=== PATIENT | female | born 1955 | race Caucasian/White ===

== ENCOUNTER 2017-01-01 19:31 | Inpatient (IN) | payer OTHER ==
[2017-01-02 04:06] LABS: HGB 10.9 g/dl (12.5-16.0); MCH 29.6 pg (25.0-31.0); MCHC 32.1 g/dL (32.0-36.0); MCV 92.4 fL (78.0-100.0); MPV 10.7 fL (6.0-9.5); RBC 3.68 M/uL (4.20-5.40); WBC 7.7 K/uL (4.0-10.5)
[2017-01-02 04:26] LABS: CREATININE 0.6 mg/dL (0.5-1.0)
[2017-01-03 05:19] LABS: HCT 38.8 % (37.0-47.0); HGB 12.7 g/dl (12.5-16.0); MCH 29.4 pg (25.0-31.0); MCHC 32.7 g/dL (32.0-36.0); MCV 89.8 fL (78.0-100.0); MPV 10.4 fL (6.0-9.5); RBC 4.32 M/uL (4.20-5.40); RDW 13.1 % (11.5-14.0); WBC 8.6 K/uL (4.0-10.5)
[2017-01-03 10:36] LABS: ALBUMIN 2.6 g/dL (3.4-4.8); BILIRUBIN - TOTAL 0.5 mg/dL (0.1-1.0); CREATININE 0.7 mg/dL (0.5-1.0); GLOBULIN (CALCULATION) 1.6 g/dL (2.2-4.2); MAGNESIUM 1.45 mg/dL (1.40-2.10); PHOSPHORUS 2.6 mg/dL (2.7-4.5); POTASSIUM 3.4 mmol/L (3.5-5.1); TOTAL PROTEIN 4.2 g/dL (6.4-8.3)
[2017-01-03 16:17] LABS: BILIRUBIN 2+ mg/dL (NEGATIVE); BLOOD TRACE-INTACT Ery/uL (NEGATIVE); CLARITY CLEAR (CLEAR); COLOR AMBER (YELLOW); GLUCOSE (U) NORMAL (NORMAL); KETONE (U) 2+ (MODERATE) mg/dL (NEGATIVE); LEUKOCYTES NEGATIVE Leu/uL (NEGATIVE); NITRITE NEGATIVE (NEGATIVE); PROTEIN 1+ mg/dL (NEGATIVE)
[2017-01-03 16:26] LABS: BACTERIA TRACE
--- NOTE | 2017-01-03 22:00 | NUR ---
DR FERRER INFORMED PT AND FAMILY OF CT RESULTS AND THE POSSIBILITY OF SURGERY AT THIS TIME CONSENT FOR CENTRAL LINE PLACEMENT SIGNED PER DTR [id number]-DR FERRER INFORMED PT THAT SHE WILL BE GOING DOWN TO SURGERY R/T ABCESS OF LEFT FLANK,CONSENT SIGNED BY DTR, 7898-PT LEFT FLOOOR PER STRETCHER AND 2 SURGICAL PERSONAL,IN STABLE CONDITION REPORT GIVEN
--- NOTE | 2017-01-04 02:35 | NUR ---
PT ARRIVED FROM OR AT 0120. L WRIST ARTERIAL LINE IN PLACE. WOUND VAC TO LLQ WITH BROWN DRAINAGE, EMPTIED 450ML. F/C STILL IN PLACE WITH DARK BROWNISH/GREEN URINE. HR CURRTENTLY 122, 99.1 TEMP, 84/50 ABP, 96% ON 2L, LABS DRAWN, 1ST LR BOLUS GOING. IN OR THEY WASHED OUT HER ABDOMEN WITH 3-4L OF NS PER BENCH MECHANIC AND GOT OUT BLOODY/BROWN DRAINAGE AND PLACED WOUND VAC AND LSC TRIPLE LUMEN. DIAGNOSING WITH NECROTIZING FASCIITIS.
[2017-01-04 02:48] LABS: HCT 31.7 % (37.0-47.0); HGB 10.3 g/dl (12.5-16.0); MCH 29.2 pg (25.0-31.0); MCHC 32.5 g/dL (32.0-36.0); MCV 89.8 fL (78.0-100.0); MPV 10.3 fL (6.0-9.5); RBC 3.53 M/uL (4.20-5.40); WBC 8.1 K/uL (4.0-10.5)
[2017-01-04 03:10] LABS: ALBUMIN 1.9 g/dL (3.4-4.8); BILIRUBIN - TOTAL 0.5 mg/dL (0.1-1.0); CREATININE 0.8 mg/dL (0.5-1.0); GLOBULIN (CALCULATION) 1.4 g/dL (2.2-4.2); POTASSIUM 3.3 mmol/L (3.5-5.1); TOTAL PROTEIN 3.3 g/dL (6.4-8.3)
[2017-01-04 03:11] LABS: MAGNESIUM 1.59 mg/dL (1.40-2.10); PHOSPHORUS 2.3 mg/dL (2.7-4.5)
== END 2017-01-04 03:00 | disposition other institution (70) | DRG 853 ==
LOC: FTCU 19:31 → FICU 01-04 00:56
PROVIDERS: Internal Medicine Nephrology; ADMIT Surgery
PROC: 0DTJ4ZZ Resection of Appendix, Percutaneous Endoscopic Approach (ICD-10-PCS; principal; 2017-01-01)
PROC: 0DN84ZZ Release Small Intestine, Percutaneous Endoscopic Approach (ICD-10-PCS; 2017-01-01)
PROC: 0J980ZZ Drainage of Abdomen Subcutaneous Tissue and Fascia, Open Approach (ICD-10-PCS; 2017-01-03)
DX: A41.9 Sepsis, unspecified organism (principal); M72.6 Necrotizing fasciitis; R65.21 Severe sepsis with septic shock; K35.80 Unspecified acute appendicitis; I10 Essential (primary) hypertension; K66.0 Peritoneal adhesions (postprocedural) (postinfection); F41.9 Anxiety disorder, unspecified; Z98.84 Bariatric surgery status; Z90.710 Acquired absence of both cervix and uterus; F29 Unspecified psychosis not due to a substance or known physiological condition; M19.90 Unspecified osteoarthritis, unspecified site; F17.200 Nicotine dependence, unspecified, uncomplicated; G89.4 Chronic pain syndrome; R01.1 Cardiac murmur, unspecified; Z88.2 Allergy status to sulfonamides; E86.0 Dehydration
CPT/HCPCS: 36415; 36600; 71010; 71260; 74000; 80048; 80053; 81001; 81003; 82150; 82550; 82803; 83690; 83735; 84100; 84145; 84484; 85025; 87040; 87070; 87075; 87077; 87088; 87186; 87205; 88304; 93005; 94010; J0131; J1100; J1170; J1885; J1956; J2060; J2405; J2543; J2704; J3010; J3370; J3475; Q9967

== ENCOUNTER 2021-04-18 16:45 | Emergency (ER) | payer MEDICARE ==
[2021-04-18 18:58] LABS: BASOPHIL 0.5 % (0-2); EOSINOPHIL 5.1 % (0-7); HCT 36.1 % (37.0-47.0); HGB 11.9 g/dl (12.5-16.0); LYMPHOCYTE 30.6 % (15-48); MCH 30.4 pg (25.0-31.0); MCV 92.3 fL (78.0-100.0); MONOCYTE 9.3 % (0-12); MPV 11.1 fL (6.0-9.5); NEUTROPHIL 53.6 % (41-80); NRBC 0; PLT 151 K/uL (150-400); RBC 3.91 M/uL (4.20-5.40); RDW 13.2 % (11.5-14.0); WBC 5.7 K/uL (4.0-10.5)
[2021-04-18 19:39] LABS: ALBUMIN 3.4 g/dL (3.4-5.0); BILIRUBIN - TOTAL 0.2 mg/dL (0.2-1.0); BUN/CREAT RATIO (CALC) 14.9 RATIO; CREATININE 0.67 mg/dL (0.51-0.95); GLOBULIN (CALCULATION) 3.5 g/dL; POTASSIUM 3.5 mmol/L (3.5-5.1); TOTAL PROTEIN 6.9 g/dL (6.4-8.2)
[2021-04-18 19:56] LABS: BILIRUBIN NEGATIVE (NEGATIVE); BLOOD 2+ Ery/uL (NEGATIVE); CLARITY CLEAR (CLEAR); COLOR YELLOW (YELLOW); GLUCOSE (U) NORMAL (NORMAL); LEUKOCYTES 3+ Leu/uL (NEGATIVE); NITRITE POSITIVE (NEGATIVE); PROTEIN NEGATIVE (NEGATIVE); SPECIFIC GRAVITY 1.015 (1.001-1.030); UROBILINOGEN 0.2 mg/dL (0.2-1.0)
[2021-04-18 20:03] LABS: BACTERIA 4+; URINARY WBC TNTC
[2021-04-18 20:13] LABS: INR 1.01 (0.9-1.2); PROTHROMBIN TIME 12.6 SECONDS (11.4-13.6); PTT 28.4 SECONDS (22.2-34.7)
[2021-04-18] MEDS ORDERED: BENTYL10 MG PO (20:18)
[2021-04-18] MEDS ORDERED: IMODIUM A-D2 MG PO (20:18)
[2021-04-18 20:30] LABS: LACTIC ACID 0.3 mmol/L (0.4-1.9)
[2021-04-18] MEDS ORDERED: CIPRO500 MG PO (20:42)
== END 2021-04-18 20:35 | disposition home or self-care (01) ==
LOC: FER 16:45
PROVIDERS: Emergency Medicine; Emergency Medicine Emergency Medical Services
DX: R19.7 Diarrhea, unspecified (principal); Z90.49 Acquired absence of other specified parts of digestive tract
CPT/HCPCS: 36415; 80053; 81001; 82150; 82270; 83605; 83690; 84145; 85025; 85610; 85730; Q9967

== ENCOUNTER 2022-01-27 10:14 | Emergency (ER) | payer MEDICARE ==
[~2022-01-27] VITALS: Ht 162.6 cm; Wt 73.5 kg
[~2022-01-27 10:14] MED LIST: BENTYL10 MG PO; CIPRO500 MG PO; IMODIUM A-D2 MG PO
[2022-01-27 11:06] LABS: BILIRUBIN NEGATIVE (NEGATIVE); BLOOD TRACE-INTACT Ery/uL (NEGATIVE); CLARITY CLEAR (CLEAR); COLOR YELLOW (YELLOW); GLUCOSE (U) NORMAL (NORMAL); LEUKOCYTES 3+ Leu/uL (NEGATIVE); NITRITE NEGATIVE (NEGATIVE); PROTEIN NEGATIVE (NEGATIVE); SPECIFIC GRAVITY <=1.005 (1.001-1.030); UROBILINOGEN 0.2 mg/dL (0.2-1.0); pH 5.5 (5.0-9.0)
[2022-01-27 11:12] LABS: BACTERIA 3+; URINARY WBC 20-50
[2022-01-27 11:19] LABS: BASOPHIL 0.5 % (0-2); EOSINOPHIL 0.5 % (0-7); HCT 41.1 % (37.0-47.0); LYMPHOCYTE 13.7 % (15-48); MCH 29.9 pg (25.0-31.0); MCHC 31.6 g/dL (32.0-36.0); MCV 94.5 fL (78.0-100.0); MONOCYTE 6.7 % (0-12); NEUTROPHIL 78.3 % (41-80); NRBC 0; PLT 147 K/uL (150-400); RBC 4.35 M/uL (4.20-5.40); RDW 13.2 % (11.5-14.0)
[2022-01-27 11:48] LABS: ALBUMIN 3.8 g/dL (3.4-5.0); BILIRUBIN - TOTAL 0.7 mg/dL (0.2-1.0); BUN/CREAT RATIO (CALC) 17.6 RATIO; CREATININE 0.68 mg/dL (0.51-0.95); GLOBULIN (CALCULATION) 3.3 g/dL; TOTAL PROTEIN 7.1 g/dL (6.4-8.2)
[2022-01-27] MEDS ORDERED: CIPRO500 MG PO (12:20)
[2022-01-27] MEDS ORDERED: PYRIDIUM100 MG PO (12:20)
== END 2022-01-27 12:25 | disposition home or self-care (01) ==
LOC: FER 10:14
PROVIDERS: Emergency Medicine
DX: N39.0 Urinary tract infection, site not specified (principal); Z88.2 Allergy status to sulfonamides
CPT/HCPCS: 36415; 80053; 81001; 85025; 87076; 87088; 87186; 99283